=== PATIENT | female | born 1970 | race Caucasian/White ===

== ENCOUNTER 2016-12-31 09:01 | Observation (INO) ==
[2016-12-31] MEDS ORDERED: ONDANSETRON 4 MG/2 ML INJECTION IVP ONE (09:12)
[2016-12-31] MEDS ORDERED: NS 1,000 ML IV ONE ×2 (09:12→11:51)
[2016-12-31] MEDS ORDERED: HYDROMORPHONE 2 MG/ML INJECTION IVP ONE ×2 (09:31→13:38)
[2016-12-31] MEDS ORDERED: KETOROLAC 30 MG/ML INJECTION IVP ONE (09:31)
--- NOTE | 2016-12-31 09:34 | Emergency Department Report ---
Abdominal Pain HPI - General Stated Complaint: vomiting x 3 days Time Seen by Provider: 12/31/16 09:12 - History of Present Illness HPI narrative: 46 yo female with n/v x 3 days. Body aches, fever, diarrhea. Vomiting frequently, suppositories did not even help. No sig po intake since . Has been able to keep any fluids down. He is now nervous even trying to drink due to the violent vomiting she has had. She feels very weak and feels unable to care for herself at this time. - Related Data Home Medications Medication Instructions Recorded Confirmed Albuterol HFA Inhaler [Ventolin 1 puff ORAL INH BID 09/26/16 12/31/16 Hfa 90 mcg/actuation] Fluticasone/Salmeterol 500/50 1 each INH DAILY 09/26/16 12/31/16 [Advair 500-50Diskus] Hydrocodone/APAP 7.5/325 [[place] 1 tab PO Q6H PRN 12/31/16 12/31/16 7.5/325] Ketorolac Tab [Toradol] 10 - 20 mg PO Q4H PRN 12/31/16 12/31/16 LORazepam [Ativan] 0.5 mg PO Q8H PRN 12/31/16 12/31/16 Promethazine Supp [Phenergan Supp] 25 mg RI Q6H PRN 12/31/16 12/31/16 Propranolol LA [Inderal LA] 60 mg PO DAILY 01/01/17 01/01/17 Previous Rx's Medication Instructions Recorded Ondansetron HCl [Zofran] 4 mg PO Q6H PRN #20 tab 01/01/17 Allergies Allergy/AdvReac Type Severity Reaction Status Date / Time amitriptyline Allergy Intermediate hives Verified 12/31/16 09:22 sulfamethoxazole Allergy Intermediate hives Verified 12/31/16 09:22 trimethoprim Allergy Intermediate hives Verified 12/31/16 09:22 butalbital Allergy Mild RASH Verified 12/31/16 09:22 caffeine Allergy Mild RASH Verified 12/31/16 09:22 clonazepam Allergy Unknown Verified 12/31/16 09:22 codeine Allergy Unknown RASH,ITCHIN Verified 12/31/16 09:22 G,VOMITING prochlorperazine Allergy Unknown BODY Verified 12/31/16 09:22 STIFFNESS,SEIZURE LIKE ACTIVITY trimethobenzamide Allergy Unknown BODY Verified 12/31/16 09:22 STIFFNESS,SEIZURE LIKE ACTIVITY Review of Systems All systems: reviewed and negative except as stated PFSH Patient Stated Medical History Migraine Yes Other Respiratory Yes: EMPHYSEMA Surgical History: Oral Surgery - Social History Smoking status: Current every day smoker Physical Exam - Limitations Limitations: no limitations - General General appearance: alert, in distress - Normal Exams: Head:: Normocephalic without trauma Chest/Respirations:: Clear all zuñiga, with good airflow, and symmetry bilaterally Cardiovascular:: without murmur or gallop, Pulses 2+ all extremities, capillary refill, <2 seconds all extremities Neurological:: Patient is alert, and oriented, cranial nerves, motor/sensory/ cerebellar, exams w/o gross deficits, to observation Psychiatric:: Patient exhibits, appropriate attention, emotion and affect - Cardiovascular Cardiovascular exam: Present: tachycardia. Absent: systolic murmur, diastolic murmur - Abdominal Exam Abdominal exam: Present: soft, tenderness (diffuse), hyperactive bowel sounds. Absent: guarding, rebound, rigidity, trauma, ascites, mass, bruit, pulsatile mass, hernia Abdominal Pain - [facility] Narrative Medical decision making narrative: White count elevated at 11.[address] abdomen and pelvis shows "possible SMA syndrome". Significant take away from the CT is that she does have thickening of bowel. Possible early small bowel obstruction. Discussed with hospitalist and patient will be admitted for IV fluid and nausea medication with bowel rest and treatment. In ER, IV line was placed, normal saline given 1 L bolus, a total of 1 mg Dilaudid IV, Toradol 30 mg IV, Zofran 4 mg IV and Decadron 8 mg IV. All in an attempt to improve her symptoms. She was also given GI cocktail early on to the burning in her stomach, this helped minimally but did not significantly improve her symptoms. - Medical Records Attestation: I reviewed the patient's medical records. - Lab Data Attestation: I reviewed the patient's lab results. Result diagrams: 01/01/17 04:05 01/01/17 04:05 - Radiology Data Attestation: I reviewed the patient's radiology results. Disposition Clinical Impression: Gastroenteritis Disposition: To [facility] Condition: Stable Time of Disposition: 12:50 - Seen By: physician
[2016-12-31] MEDS: SALINE FLUSH 10ml SYRINGE IVF PRN ×2 (09:40→14:46)
[2016-12-31] MEDS ORDERED: NS 100 ML ONE (10:04)
[2016-12-31] MEDS ORDERED: SALINE FLUSH 10ml SYRINGE ONE (10:04)
[2016-12-31] MEDS ORDERED: IOHEXOL 300mg/ml 75ml INJECTION ONE (10:04)
--- NOTE | 2016-12-31 10:56 | XRay Report ---
LOCATION OF DICTATION: [place] EXAM: XR chest 2V HISTORY: n/v, possible aspiration COMPARISON: No prior studies available for comparison. FINDINGS: The heart size is normal. The mediastinal configuration is unremarkable. The lungs are hyperexpanded compatible with chronic emphysema. There are no consolidating opacities or pleural effusions. There is no evidence for a pneumothorax. The osseous structures are within normal limits. IMPRESSION: Chronic emphysema without evidence for pneumonia. .
--- NOTE | 2016-12-31 11:10 | CT Scan Report ---
EXAM: CT abdomen pelvis with contrast. LOCATION OF DICTATION: [place] HISTORY: n/v COMPARISON: September 16, 2014. TECHNIQUE: CT images were obtained of the abdomen and pelvis utilizing 85 mL of Omnipaque 300. Coronal and sagittal reformations were utilized. Automated Exposure Control and Iterative Reconstruction dose reducing techniques were utilized. CT ABDOMEN PELVIS FINDINGS: LUNG BASES: Unremarkable LIVER: Unremarkable. SPLEEN: Unremarkable. GALLBLADDER: Unremarkable. PANCREAS: Unremarkable. ADRENAL GLANDS: Unremarkable. KIDNEYS: Unremarkable. AORTA: Mild calcific atherosclerotic disease of the abdominal aorta. LYMPH NODES: Unremarkable. STOMACH BOWEL LOOPS: There is mural thickening noted about the gastric body and antrum. A underlying gastritis is a consideration. There is dilatation of the proximal duodenum with some narrowing at the level of the SMA. SMA syndrome could have this appearance. PERITONEAL CAVITY: There is no abdominal or pelvic inflammatory mass or ascites. CT PELVIS URINARY BLADDER: Unremarkable. UTERUS: The uterus is surgically absent. OSSEOUS STRUCTURES: Unremarkable. IMPRESSION: 1. Moderate mural thickening about the gastric body and gastric antrum which could indicate underlying gastritis. 2. There is dilatation of the proximal duodenum with some narrowing at the level of the SMA. SMA syndrome could have this appearance and clinical correlation recommended. 3. No inflammatory mass, lymphadenopathy, or ascites. .
[2016-12-31] MEDS ORDERED: DEXAMETHASONE 4 MG/ML INJECTION IVP ONE (11:42)
[2016-12-31] MEDS ORDERED: GI COCKTAIL 30 ML PO ONE (11:42)
--- NOTE | 2016-12-31 14:01 | History & Physical Report ---
<Lilly Whiteside V - Last Filed: 12/31/16 13:57> History of Present Illness Date: 12/31/16 Chief complaint: nausea, vomiting, diarrhea HPI: Carolina is a 46-year-old female who presented to the emergency room today for acute evaluation of nausea, vomiting and diarrhea 3 days. She has been utilizing Phenergan suppositories at home for the last 24 hours without relief. She is unable to keep down oral food and fluids. Daily evaluation was completed in the emergency room. White count under be normal at 9.6, hemoglobin 16.5, hematocrit 50.2, 78% neutrophils. Sodium is elevated at 147, potassium 3.9, BUN 20, creatinine 0.7, Platelet osmology 285. LFTs are normal, troponin normal, lipase 65 and venous lactate 1.5. Urinalysis does reveal dehydration with trace protein, 3+ ketones and 1+ bilirubin. Vital signs are review and stable. Temperature 99.2, pulse 98, respiration rate 16, blood pressure 120/76, room air saturations 99%. Was given a liter of IV fluids as well as Dilaudid and Toradol for pain control. Zofran for nausea and Decadron Iv while in the ER. Due to her continued nausea, accompanied with dehydration Hospital services were contacted and accepted patient for outpatient admission for further evaluation and treatment Kalyn is seen on initial examination. She is alert and oriented with family at her bedside. She is somewhat pale in color with dark circles under her eyes, and family reports this is not normal. She complains of persistent nausea and abdominal pain despite IV Zofran and Dilaudid. History and present illness are reviewed with patient and . Patient has been under the care of Dr. Neno Flores for chronic migraines with chronic narcotic use and COPD. Review of Systems All systems PM: 10-point ROS was reviewed, no additional remarkable complaints except - Constitutional Constitutional: Present: fatigue, headache(s) - Gastrointestinal Gastrointestinal: Present: as per HPI, abdominal pain, diarrhea, nausea, vomiting PFSH Chronic migraine headaches COPD Hyperlipidemia Chronic abdominal pain since 1984 Chronic narcotic use History of anemia, hemoglobin was 2.7, secondary to endometriosis Chronic tobacco dependence Hx of kidney infection, hospitalized in the year 1999 Surgical History: Appendectomy. Abdominal laparoscopy-1984. Hysterectomy-2014 - Social History Smoking status: Current every day smoker Substance use type: does not use Alcohol intake frequency: does not drink Housing: house Household members: spouse Social history: Primary care provider Dr. Neno Flores and [facility] Medications Home Medications Medication Instructions Recorded Confirmed Type Albuterol HFA Inhaler [Ventolin 1 puff ORAL INH BID 09/26/16 12/31/16 History Hfa 90 mcg/actuation] Fluticasone/Salmeterol 500/50 1 each INH DAILY 09/26/16 12/31/16 History [Advair 500-50Diskus] Hydrocodone/APAP 7.5/325 [[place] 1 tab PO Q6H PRN 12/31/16 12/31/16 History 7.5/325] Ketorolac Tab [Toradol] 10 - 20 mg PO Q4H PRN 12/31/16 12/31/16 History LORazepam [Ativan] 0.5 mg PO Q8H PRN 12/31/16 12/31/16 History Promethazine Supp [Phenergan Supp] 25 mg DC Q6H PRN 12/31/16 12/31/16 History Propranolol HCl [Inderal Xl] 80 mg PO DAILY 12/31/16 12/31/16 History Allergies Allergy/AdvReac Type Severity Reaction Status Date / Time amitriptyline Allergy Intermediate hives Verified 12/31/16 09:22 sulfamethoxazole Allergy Intermediate hives Verified 12/31/16 09:22 trimethoprim Allergy Intermediate hives Verified 12/31/16 09:22 butalbital Allergy Mild RASH Verified 12/31/16 09:22 caffeine Allergy Mild RASH Verified 12/31/16 09:22 clonazepam Allergy Unknown Verified 12/31/16 09:22 codeine Allergy Unknown RASH,ITCHIN Verified 12/31/16 09:22 G,VOMITING prochlorperazine Allergy Unknown BODY Verified 12/31/16 09:22 STIFFNESS,SEIZURE LIKE ACTIVITY trimethobenzamide Allergy Unknown BODY Verified 12/31/16 09:22 STIFFNESS,SEIZURE LIKE ACTIVITY Exam Vital Signs: Temperature 98.4 F 12/31/16 12:40 Pulse Rate 81 12/31/16 11:15 Respiratory Rate 20 12/31/16 11:15 Blood Pressure 116/62 12/31/16 11:15 Pulse Oximetry 97 12/31/16 11:15 - Constitutional Present: no acute distress, well nourished, well developed - Routine HEENT Exam Eye: Present: EOMI ENT: Present: mucous membranes moist, dentition normal - Routine Neck Exam Present: full ROM - Routine Respiratory Exam Present: CTA bilaterally. Absent: wheezes - Routine Cardiovascular Exam Present: RRR, S1, S2. Absent: murmur - Routine Abdominal Exam Present: soft, normoactive bowel sounds, tenderness (epigastric tenderness), non distended - Routine Extremities Exam Present: normal capillary refill - Routine Skin Exam Present: dry, warm - Routine Neurological Exam Present: alert, oriented X3, CN II-XII intact - Routine Psychiatric Exam Present: normal affect Results - Labs CBC & Chem 7: 12/31/16 09:46 12/31/16 09:46 Assessment and Plan DVT Prophylaxis: SCD's GI Prophylaxis: Protonix Resuscitation Status: Full Code Assessment and Plan: Impression Dehydration Hypernatremia-present on admission, sodium 147 Nausea, vomiting, diarrhea Abdominal pain COPD with chronic tobacco dependence History of significant anemia Plan The patient outpatient observation under the care of Dr. Malik for dehydration, hypovolemia, nausea, vomiting and diarrhea. Will continue with hydration, 1/2 NS at 125 ML/hr Zofran and Reglan available as needed for nausea Keep patient nothing by mouth at this time, however, can advance to clear liquid diet as tolerated Will obtain a GI panel to rule out infectious etiology Will initiate IV protonic daily for GI protection. Given epigastric discomfort. SCDs to bilateral lower extremity for DVT prophylaxis Will continue home Advair and Ventolin inhalers for chronic COPD Recheck BMP and CBC tomorrow. Follow blood counts, renal function, electrolytes We'll discuss further orders and plan of care with attending, Dr. Malik. At time of discharge medical care will return to primary care provider. Dr. Flores Hospital Course Summary Disclaimer: The visit summary below is not to be considered part of the above Progress Note. Hospital Course: 12/31/16 Impression Dehydration Hypernatremia-present on admission, sodium 147 Nausea, vomiting, diarrhea Abdominal pain COPD with chronic tobacco dependence History of significant anemia Plan The patient outpatient observation under the care of Dr. Malik for dehydration, hypovolemia, nausea, vomiting and diarrhea. Will continue with hydration, 1/2 NS at 125 ML/hr Zofran and Reglan available as needed for nausea Keep patient nothing by mouth at this time, however, can advance to clear liquid diet as tolerated Will obtain a GI panel to rule out infectious etiology Will initiate IV protonic daily for GI protection. Given epigastric discomfort. SCDs to bilateral lower extremity for DVT prophylaxis Will continue home Advair and Ventolin inhalers for chronic COPD Recheck BMP and CBC tomorrow. Follow blood counts, renal function, electrolytes We'll discuss further orders and plan of care with attending, Dr. Malik. At time of discharge medical care will return to primary care provider. Dr. Flores <Antonio Malik - Last Filed: 12/31/16 19:10> History of Present Illness Date: 12/31/16 COUNT INCLUDES THE [facility] Patient Stated Medical History Migraine Yes Chronic Obstructive Pulmonary Yes Disease (COPD) Other Respiratory Yes: EMPHYSEMA Blood Transfusions Yes: no reactions Exam Vital Signs: Temperature 98.4 F 12/31/16 15:45 Pulse Rate 90 12/31/16 15:45 Respiratory Rate 12 12/31/16 15:45 Blood Pressure 106/72 12/31/16 15:45 Pulse Oximetry 97 12/31/16 15:45 Height/Weight/BMI: Height 1.57 m Weight 52 kg Body Mass Index 20.9 Results - Labs CBC & Chem 7: 12/31/16 09:46 12/31/16 09:46 Assessment and Plan Assessment and Plan: Impression Dehydration Hypernatremia (POA) - sodium 147 Nausea, vomiting, diarrhea Abdominal pain COPD with chronic tobacco dependence History of significant anemia Have independently interviewed and examined pt. Chart reviewed. Case discussed with ED physician and my FLARER. Care plan developed with my supervision; agree with above. Started feeling sick Saturday night (12/28)-achy in abdomen and very nauseated. Not able to keep foods down. Multiple episodes of vomiting. Had Phenergan suppositories call out, but these did not help decrease her symptoms. Had loose stool yesterday and this morning. Feeling much more weak and unsteady. Urine output decreasing-urinating once a day. Does report a family member who was sick recently, but symptoms only lasted 24 hours. Presents to ED for evaluation. Despite IVF, still feeling very nauseated and weak. Lungs: clear CV: regular AB: soft nd, BS decreased EXT: thin, no edema MSE: awake alert GEN: appears tired, weak, and shaky Plan: OBS for IVF hydration and control of nausea. 1/2 NS at 150cc/hr. Zofran prn. IV Protonix for GI protection. Recheck lab in am. Hospital Course Summary Disclaimer: The visit summary below is not to be considered part of the above Progress Note.
[2016-12-31] MEDS ORDERED: PROMETHAZINE 25 MG SUPPOSITORY PR PRN (14:10)
[2016-12-31 14:15] VITALS: BMI 20.9
[2016-12-31] MEDS ORDERED: 1/2 NS 1,000 ML IV SCH (14:15)
[2016-12-31] MEDS ORDERED: ONDANSETRON 4 MG/2 ML INJECTION IVP PRN (14:34)
[2016-12-31] MEDS: PANTOPRAZOLE 40 MG INJECTION IVP SCH (14:46)
[2016-12-31] MEDS: 1/2 NS 1,000 ML IV SCH ×2 (14:47→21:43)
[2016-12-31] MEDS: MORPHINE SULFATE 2mg INJECTION IVP PRN ×2 (15:44→21:46)
[2016-12-31] MEDS: ONDANSETRON 4 MG/2 ML INJECTION IVP PRN (18:30)
[2016-12-31] MEDS ORDERED: ALBUTEROL 2.5mg/3ml (0.083%) NEB AEROSOL SCH (21:00)
[2016-12-31] MEDS: METOCLOPRAMIDE 10mg/2ml INJECTION IVP PRN (21:49)
[2017-01-01] MEDS: KETOROLAC 30 MG/ML INJECTION IVP PRN ×2 (00:07→06:18)
[2017-01-01] MEDS: ONDANSETRON 4 MG/2 ML INJECTION IVP PRN (04:34)
[2017-01-01] MEDS: MORPHINE SULFATE 2mg INJECTION IVP PRN ×2 (04:37→08:22)
[2017-01-01] MEDS: 1/2 NS 1,000 ML IV SCH ×2 (04:40→12:04)
[2017-01-01] MEDS: METOCLOPRAMIDE 10mg/2ml INJECTION IVP PRN (06:22)
[2017-01-01 07:33] VITALS: BP 110/69; TEMP 98; O2SAT 97
[2017-01-01] MEDS: PANTOPRAZOLE 40 MG INJECTION IVP SCH (08:19)
[2017-01-01] MEDS: SALINE FLUSH 10ml SYRINGE IVF PRN (08:19)
[2017-01-01] MEDS ORDERED: PROPRANOLOL LA 60 MG CAPSULE PO SCH (09:00)
[2017-01-01] MEDS ORDERED: PROPRANOLOL LA 80 MG CAPSULE PO SCH (09:00)
[2017-01-01 09:52] VITALS: PULSE 59
[2017-01-01 09:54] VITALS: RESP 14
--- NOTE | 2017-01-01 14:21 | Progress Note ---
- Date 01/01/17 Subjective: F/U: Dehydration, Hypernatremia, N/V Doing much better today. Nausea decreased, able to take clear liquids in (using caution with oral intake). No diarrhea. Urine output increased. Breathing well. No f/c. Feels much less weak and washed out. Objective Vital signs: Temperature 98.0 F 01/01/17 07:00 Pulse Rate 59 L 01/01/17 08:00 Respiratory Rate 14 01/01/17 09:52 Blood Pressure 110/69 01/01/17 07:00 Pulse Oximetry 97 01/01/17 07:00 Height/Weight/BMI: Height 1.57 m Weight 54.3 kg Body Mass Index 20.9 - Constitutional Present: no acute distress, well nourished, well developed, thin, cooperative. Absent: combative, somnolent - Routine HEENT Exam Head: Present: normocephalic, atraumatic Eye: Present: EOMI, PERRL ENT: Present: mucous membranes moist - Routine Respiratory Exam Present: CTA bilaterally. Absent: rales, respiratory distress, rhonchi, wheezes - Routine Cardiovascular Exam Present: RRR, no murmur - Routine Abdominal Exam Present: soft, normoactive bowel sounds, non distended, non tender. Absent: rebound, guarding - Routine Extremities Exam Present: no edema, pulses intact. Absent: cyanosis, clubbing - Routine Musculoskeletal Exam Musculoskeletal: Present: no clubbing or cyanosis, normal strength - Routine Skin Exam Present: dry, warm - Routine Neurological Exam Present: alert, oriented X3, CN II-XII intact, moving all extremities, vision grossly intact, hearing grossly intact. Absent: motor deficit, altered mental status - Routine Psychiatric Exam Present: normal affect, normal thought process, cooperative. Absent: anxious, agitated Results - Labs CBC & Chem 7: 01/01/17 04:05 01/01/17 04:05 Assessment and Plan (1) Dehydration Current visit: Yes Status: Acute (2) Hypernatremia Current visit: Yes Status: Acute DVT Prophylaxis: SCD's GI Prophylaxis: Protonix Resuscitation Status: Full Code Assessment and Plan: Impression Dehydration Hypernatremia (POA) - sodium 147 Nausea, vomiting, diarrhea Abdominal pain COPD with chronic tobacco dependence History of significant anemia Plan Patient with significant improvement. Sodium normalized at 139. Nausea resolved. Taking oral intake well. GI panel not able to be run as patient had no diarrhea during hospitalization. Will d/c to home. [place] diet (plenty of fluids), increasing as able. May continue Phenergan suppositories as needed for nausea; will give Rx for Zofran (advised pt she hopefully will not need). Increase activities as able. F/U with Dr Flores in 1 week for recheck. Medically stable for discharge to home - see orders for details. Case discussed with CM. Time spent with patient care and discharge greater than 30 minutes. Hospital Course Summary Disclaimer: The visit summary below is not to be considered part of the above Progress Note. Hospital Course: 12/31/16 Impression Dehydration Hypernatremia-present on admission, sodium 147 Nausea, vomiting, diarrhea Abdominal pain COPD Chronic tobacco dependence History of significant anemia Plan The patient outpatient observation under the care of Dr. Malik for dehydration, hypovolemia, nausea, vomiting and diarrhea. Will continue with hydration, 1/2 NS at 150 ML/hr. Zofran and Reglan available as needed for nausea. Keep patient nothing by mouth at this time, however, can advance to clear liquid diet as tolerated. Will obtain a GI panel to rule out infectious etiology. Will initiate IV protonic daily for GI protection. Given epigastric discomfort. SCDs to bilateral lower extremity for DVT prophylaxis. Will continue home Advair and Ventolin inhalers for chronic COPD. Recheck BMP and CBC tomorrow. Follow blood counts, renal function, electrolytes We'll discuss further orders and plan of care with attending, Dr. Malik. At time of discharge medical care will return to primary care provider. Dr. Flores. 01/01/17 Patient with significant improvement. Sodium normalized at 139. Nausea resolved. Taking oral intake well. GI panel not able to be run as patient had no diarrhea during hospitalization. Will d/c to home. [place] diet (plenty of fluids), increasing as able. May continue Phenergan suppositories as needed for nausea; will give Rx for Zofran (advised pt she hopefully will not need). Increase activities as able. F/U with Dr Flores in 1 week for recheck. Medically stable for discharge to home - see orders for details.
--- NOTE | 2017-01-01 14:32 | Discharge Summary ---
Discharge Information Date of admission: 12/31/16 13:51 Anticipated date of discharge: 01/01/17 Attending Physician: Antonio Malik MD Primary care physician: Neno Folres MD Consults: RT for tobacco cessation - Discharge Diagnosis (1) Dehydration Status: Acute (2) Hypernatremia Status: Acute Discharge Diagnosis: Discharge diagnosis Dehydration Associated conditions and complications Hypernatremia-present on admission, sodium 147 Nausea, vomiting, diarrhea Abdominal pain COPD Chronic tobacco dependence History of significant anemia - Laboratory Labs: Admit Lab 12/31/16 09:46 WBC 9.6 Hgb 16.5 H Hct 50.2 H MCV 95.4 Plt Count 224 Neut % (Auto) 78.4 H Lymph % (Auto) 16.3 L Admit Lab 12/31/16 09:46 Sodium 147 H Potassium 3.9 Chloride 101 Carbon Dioxide 28 Anion Gap 18 H BUN 20.0 H Creatinine 0.7 GFR Calculation 89 BUN/Creatinine Ratio 29 H Glucose 103 Calculated Osmolality 285 H Calcium 10.8 H Total Bilirubin 0.80 AST 22 ALT 31 Alkaline Phosphatase 104 Troponin I < 0.012 Total Protein 8.9 H Albumin 5.3 H Globulin 3.6 Lipase 65 01/01/17 04:05 01/01/17 04:05 - Radiology Radiology: Date of Exam: 12/31/16 EXAM: CT abdomen pelvis with contrast. CT ABDOMEN PELVIS FINDINGS: LUNG BASES: Unremarkable LIVER: Unremarkable. SPLEEN: Unremarkable. GALLBLADDER: Unremarkable. PANCREAS: Unremarkable. ADRENAL GLANDS: Unremarkable. KIDNEYS: Unremarkable. AORTA: Mild calcific atherosclerotic disease of the abdominal aorta. LYMPH NODES: Unremarkable. STOMACH BOWEL LOOPS: There is mural thickening noted about the gastric body and antrum. A underlying gastritis is a consideration. There is dilatation of the proximal duodenum with some narrowing at the level of the SMA. SMA syndrome could have this appearance. PERITONEAL CAVITY: There is no abdominal or pelvic inflammatory mass or ascites. CT PELVIS URINARY BLADDER: Unremarkable. UTERUS: The uterus is surgically absent. OSSEOUS STRUCTURES: Unremarkable. IMPRESSION: 1. Moderate mural thickening about the gastric body and gastric antrum which could indicate underlying gastritis. 2. There is dilatation of the proximal duodenum with some narrowing at the level of the SMA. SMA syndrome could have this appearance and clinical correlation recommended. 3. No inflammatory mass, lymphadenopathy, or ascites. -- Date of Exam: 12/31/16 EXAM: XR chest 2V FINDINGS: The heart size is normal. The mediastinal configuration is unremarkable. The lungs are hyperexpanded compatible with chronic emphysema. There are no consolidating opacities or pleural effusions. There is no evidence for a pneumothorax. The osseous structures are within normal limits. IMPRESSION: Chronic emphysema without evidence for pneumonia. History of Present Illness HPI: Carolina is a 46-year-old female who presented to the emergency room today for acute evaluation of nausea, vomiting and diarrhea 3 days. She has been utilizing Phenergan suppositories at home for the last 24 hours without relief. She is unable to keep down oral food and fluids. Daily evaluation was completed in the emergency room. White count under be normal at 9.6, hemoglobin 16.5, hematocrit 50.2, 78% neutrophils. Sodium is elevated at 147, potassium 3.9, BUN 20, creatinine 0.7, Platelet osmology 285. LFTs are normal, troponin normal, lipase 65 and venous lactate 1.5. Urinalysis does reveal dehydration with trace protein, 3+ ketones and 1+ bilirubin. Vital signs are review and stable. Temperature 99.2, pulse 98, respiration rate 16, blood pressure 120/76, room air saturations 99%. Was given a liter of IV fluids as well as Dilaudid and Toradol for pain control. Zofran for nausea and Decadron Iv while in the ER. Due to her continued nausea, accompanied with dehydration Hospital services were contacted and accepted patient for outpatient admission for further evaluation and treatment Kalyn is seen on initial examination. She is alert and oriented with family at her bedside. She is somewhat pale in color with dark circles under her eyes, and family reports this is not normal. She complains of persistent nausea and abdominal pain despite IV Zofran and Dilaudid. History and present illness are reviewed with patient and . Patient has been under the care of Dr. Neno Flores for chronic migraines with chronic narcotic use and COPD. For complete details of the H&P refer to that document. Objective Vital signs: Temperature 98.0 F 01/01/17 07:00 Pulse Rate 59 L 01/01/17 08:00 Respiratory Rate 14 01/01/17 09:52 Blood Pressure 110/69 01/01/17 07:00 Pulse Oximetry 97 01/01/17 07:00 Height/Weight/BMI: Height 1.57 m Weight 54.3 kg Body Mass Index 20.9 Hospital Course This is a general summary of the patient's hospital course. For more details refer to the complete medical record. Hospital course: 12/31/16 Impression Dehydration Hypernatremia-present on admission, sodium 147 Nausea, vomiting, diarrhea Abdominal pain COPD Chronic tobacco dependence History of significant anemia Plan The patient outpatient observation under the care of Dr. Malik for dehydration, hypovolemia, nausea, vomiting and diarrhea. Will continue with hydration, 1/2 NS at 150 ML/hr. Zofran and Reglan available as needed for nausea. Keep patient nothing by mouth at this time, however, can advance to clear liquid diet as tolerated. Will obtain a GI panel to rule out infectious etiology. Will initiate IV protonic daily for GI protection. Given epigastric discomfort. SCDs to bilateral lower extremity for DVT prophylaxis. Will continue home Advair and Ventolin inhalers for chronic COPD. Recheck BMP and CBC tomorrow. Follow blood counts, renal function, electrolytes. At time of discharge medical care will return to primary care provider. Dr. Flores. 01/01/17 Patient with significant improvement. Sodium normalized at 139. Nausea resolved. Taking oral intake well. GI panel not able to be run as patient had no diarrhea during hospitalization. RT to provide tobacco cessation information. Will d/c to home. [place] diet (plenty of fluids), increasing as able. May continue Phenergan suppositories as needed for nausea; will give Rx for Zofran (advised pt she hopefully will not need). Increase activities as able. F/U with Dr Flores in 1 week for recheck. Medically stable for discharge to home - see orders for details. Time spent with patient: discharge greater than 30 minutes DVT Prophylaxis: SCD's GI Prophylaxis: Protonix Discharge Plan - Med Rec/Dispo Referrals/Follow Up: Neno Flores MD [Family Provider] - 1 Week (Hospital follow up - N/V, dehydration, hypernatremia. ) [place] Instructions: Dehydration (GEN), Hypernatremia (GEN) Prescriptions: New Ondansetron HCl [Zofran] 4 mg PO Q6H PRN #20 tab PRN Reason: Nausea Continue Albuterol HFA Inhaler [Ventolin Hfa 90 mcg/actuation] 1 puff ORAL INH BID Ketorolac Tab [Toradol] 10 - 20 mg PO Q4H PRN PRN Reason: Migraine Headache Hydrocodone/APAP 7.5/325 [Tiff 7.5/325] 1 tab PO Q6H PRN PRN Reason: Pain LORazepam [Ativan] 0.5 mg PO Q8H PRN PRN Reason: Anxiety Promethazine Supp [Phenergan Supp] 25 mg NE Q6H PRN PRN Reason: Nausea Propranolol LA [Inderal LA] 60 mg PO DAILY Fluticasone/Salmeterol 500/50 [Advair 500-50Diskus] 1 each INH DAILY Discharge Instructions/Outpatient Orders: Provider Discharge Instructions Location: Determined By Patient - Disposition 01 Discharged Home, Self-Care - Attestation Attestation Narrative: 01/01/17 14:42 I have independently interviewed and examined patient prior to discharge. See my progress note from today for details. Medically stable for discharge to home.
[2017-01-01] MEDS ORDERED: ALBUTEROL 2.5mg/3ml (0.083%) NEB AEROSOL SCH (19:00)
== END 2017-01-01 15:20 | disposition home or self-care (01) ==
LOC: MED 09:01 → ED 09:01 → MED 14:02
PROVIDERS: ADMIT Hospitalist; ATTEND Hospitalist